=== PATIENT | male | born 1950 | race Caucasian/White ===

== ENCOUNTER 2021-01-03 18:29 | Emergency (ER) | payer OTHER, MEDICARE ==
[2021-01-03] MEDS ORDERED: Meclizine 25 MG Tab PO ONE (18:36)
[2021-01-03 19:13] LABS: CHLORIDE,CL 101 mmol/L (98-107); SODIUM,NA 137 mmol/L (136-145)
[2021-01-03] MEDS ORDERED: Promethazine 25 MG/ML SDV IM ONE (19:15)
--- NOTE | 2021-01-03 19:32 | EDM.PDOC ---
ED HPI GENERAL MEDICAL PROBLEM - General Chief Complaint: General Stated Complaint: Dizziness Time Seen by Provider: 01/03/21 18:30 Source of Information: Reports: Patient, Family History Limitations: Reports: No Limitations - History of Present Illness INITIAL COMMENTS - FREE TEXT/NARRATIVE: Patient comes in with complaint of not feeling well today. Noted exacerbation of his Parkinsonian symptoms. A little weaker/shakier and speech more slurred. Very dizzy when he woke up this morning. Vertigo-like sensation/room spinning when he moved his head. Just started on Sinemet last week and had dose increase yesterday.Speech has improved. Has some nausea when he is dizzy. Has history of intermittent dizziness in past but not as severe as this. No fevers/chills. No bowel changes/abdominal pain/loose stools No headache/visual changes/URI complaints/ear pain No recent injuries. No respiratory changes. Urinating well. No rashes. No focal neuro changes/weakness noted in limbs. - Related Data Allergies Allergy/AdvReac Type Severity Reaction Status Date / Time No Known Allergies Allergy Verified 01/03/21 18:30 Home Meds: Home Meds Carbidopa/Levodopa [Carbidopa-Levo 25-100 MG ODT] 2 tab PO TID 01/03/21 [History] amLODIPine Besylate [Amlodipine Besylate] 5 mg PO DAILY 01/03/21 [History] Past Medical History Cardiovascular History: Reports: Hypertension Neurological History: Reports: Parkinson's (Parkinsonian syndrome) ED ROS GENERAL - Review of Systems Review Of Systems: Comprehensive ROS is negative, except as noted in HPI. ED EXAM, GENERAL - Physical Exam Exam: See Below Exam Limited By: No Limitations General Appearance: Alert, WD/WN, No Apparent Distress Eye Exam: Bilateral Eye: EOMI, PERRL Ears: Normal External Exam, Hearing Grossly Normal, Normal TMs, Other (has approx 80% of canal plugged with cerumen) Nose: No: Nasal Deformity, Nasal Swelling, Nasal Drainage Throat/Mouth: Normal Lips, Normal Oropharynx, Normal Voice, No Airway Compromise Head: Atraumatic, Normocephalic Neck: Supple, Non-Tender Respiratory/Chest: No Respiratory Distress, Lungs Clear, Normal Breath Sounds, No Accessory Muscle Use Cardiovascular: Regular Rate, Rhythm, No Murmur GI/Abdominal: Normal Bowel Sounds, Soft, Non-Tender, No Distention (Male) Exam: Deferred Rectal (Males) Exam: Deferred Back Exam: No: CVA Tenderness (L), CVA Tenderness (R), Muscle Spasm Extremities: Non-Tender, Normal Capillary Refill Neurological: Alert, Oriented, Other (Has some unsteadiness with gait/uses cane to assist with ambulation. Appears to have equal tone/strength bilat) Psychiatric: Normal Affect, Normal Mood Skin Exam: Warm, Dry, Intact, Normal Color Course - Vital Signs Last Recorded V/S: Last Vital Signs Temp 36.2 C 01/03/21 18:34 Pulse 64 01/03/21 18:34 Resp 14 01/03/21 18:34 BP 153/87 H 01/03/21 18:34 Pulse Ox 97 01/03/21 18:34 - Orders/Labs/Meds Orders: Active Orders 24 hr Category Date Time Status Head wo Cont [CT] Stat Exams 01/03/21 18:37 Taken UA W/MICROSCOPIC [URIN] Stat Lab 01/03/21 18:38 Ordered Labs: Laboratory Tests 01/03/21 01/03/21 01/03/21 Range/Units 18:52 18:52 18:52 WBC 10.6 H (4.0-10.2) K/uL RBC 4.38 (4.33-5.41) M/uL Hgb 14.7 (13.1-16.8) g/dL Hct 42.0 (39.0-49.0) % MCV 95.9 (84.0-98.0) fL MCH 33.6 H (28.2-33.3) pg MCHC 35.0 (31.7-36.0) g/dL RDW 12.5 (11.2-14.1) % Plt Count 304 (150-350) K/uL Neut % (Auto) 48.3 (45.0-80.0) % Lymph % (Auto) 33.7 (10.0-50.0) % Parke % (Auto) 12.1 (2.0-14.0) % Eos % (Auto) 5.5 H (0.0-5.0) % Baso % (Auto) 0.4 (0.0-2.0) % Neut # (Auto) 5.10 (1.40-7.00) K/uL Lymph # (Auto) 3.56 H (0.50-3.50) K/uL Parke # (Auto) 1.28 H (0.00-1.00) K/uL Eos # (Auto) 0.58 H (0.00-0.50) K/uL Baso # (Auto) 0.04 (0.00-0.20) K/uL D-Dimer, Quantitative 294 (0-400) ng/mL Sodium 137 (136-145) mmol/L Potassium 3.9 (3.5-5.1) mmol/L Chloride 101 (98-107) mmol/L Carbon Dioxide 26.2 (21.0-32.0) mmol/L BUN 14 (7-18) mg/dL Creatinine 0.85 (0.51-1.17) mg/dL Est Cr Clr Drug Dosing 88.59 mL/min Estimated GFR (MDRD) > 60 mL/min Glucose 87 (70-99) mg/dL Calcium 8.9 (8.5-10.1) mg/dL Magnesium 2.0 (1.8-2.4) mg/dL Total Bilirubin 0.4 (0.2-1.0) mg/dL AST 69 H (15-37) U/L ALT 33 (12-78) U/L Alkaline Phosphatase 58 (46-116) IU/L Troponin I 0.000 (0.000-0.056) ng/mL Total Protein 7.9 (6.4-8.2) g/dL Albumin 3.9 (3.4-5.0) g/dL Meds: Medications Discontinued Medications Generic Name Dose Route Start Last Admin Trade Name Freq PRN Reason Stop Dose Admin Meclizine HCl 25 mg 01/03/21 18:36 01/03/21 19:28 Meclizine 25 Mg Tab PO 01/03/21 18:37 25 mg ONETIME ONE Administration Promethazine HCl 25 mg 01/03/21 19:15 01/03/21 19:29 Promethazine 25 Mg/Ml Sdv IM 01/03/21 19:16 25 mg ONETIME ONE Administration - Re-Assessments/Exams Free Text/Narrative Re-Assessment/Exam: 01/03/21 20:[address] of head ordered. Both unremarkable overall. Minimal increased WBCs. Vital signs stable. Patient had very large emesis as he was returning from [place]. Said that he immediately felt better after this. Dizziness improved/nausea mostly gone. He did receive Phenergan IM shortly thereafter. Differential includes gastroenteritis/vertigo and side effects from the Sinemet. As patient is feeling much better now, ok to return home given the nonfocal exam and unremarkable workup. Precautions reviewed. To follow up with PCP if symptoms persist for recheck. Consider holding Sinemet to see if that is cause of the dizziness/GI complaints. Patient in agreement with plan. Departure - Departure Time of Disposition: 19:32 Disposition: Home, Self-Care 01 Condition: Good Clinical Impression: Vertigo Nausea & vomiting Qualifiers: Vomiting type: unspecified Vomiting Intractability: non-intractable Qualified Code(s): R11.2 - Nausea with vomiting, unspecified - Discharge Information *PRESCRIPTION DRUG MONITORING PROGRAM REVIEWED*: Not Applicable *COPY OF PRESCRIPTION DRUG MONITORING REPORT IN PATIENT VI: Not Applicable Instructions: Vertigo, [id number], Nausea and Vomiting, Adult, [id number] Referrals: Abdullahi Wilson MD [Primary Care Provider] - Forms: ED Department Discharge Additional Instructions: See how the symptoms go overnight, or if new symptoms develop. As discussed, this may be due to a stomach virus or possibly just be due to vertigo. Since your neuro symptoms were a bit worse today it is more likely a virus. Also, cannot rule out that your symptoms are related to the Sinemet. You may need to take a break from it if they persist. Discuss that with your doctor before stopping the medication. Take Meclizine when you get home if your stomach remains settled. You can get Meclizine over the counter for dizziness issues. Take one every 6-8 hours as needed. No solid food tonight. Just fluids. Advance diet as tolerated tomorrow. Follow up as needed for any concerns/worsening. Get appointment for ear irrigation to get wax removed. cuprous chloride operator Debrox wax remover at pharmacy and use it as directed for 5-7 days prior to the appointment. Sepsis Event Note (ED) - Evaluation Sepsis Screening Result: No Definite Risk - Focused Exam Vital Signs: Vital Signs Temp Pulse Resp BP Pulse Ox 01/03/21 18:34 36.2 C 64 14 153/87 H 97 - My Orders Last 24 Hours: My Active Orders 01/03/21 18:37 Head wo Cont [CT] Stat 01/03/21 18:38 UA W/MICROSCOPIC [URIN] Stat - Assessment/Plan Last 24 Hours: My Active Orders 01/03/21 18:37 Head wo Cont [CT] Stat 01/03/21 18:38 UA W/MICROSCOPIC [URIN] Stat
== END 2021-01-03 19:49 | disposition home or self-care (01) ==
LOC: LL.ED 18:29
DX: R42 Dizziness and giddiness (principal); R11.2 Nausea with vomiting, unspecified; I10 Essential (primary) hypertension; G20 Parkinson's disease; Z79.899 Other long term (current) drug therapy
CPT/HCPCS: 36415; 70450; 80053; 83735; 84484; 85025; 85379; 96372; 99283; 99284-25; A9270-GY; J2550